=== PATIENT | male | born 1975 | race Caucasian/White ===

== ENCOUNTER 2019-02-27 21:38 | Emergency (ER) | payer OTHER ==
--- NOTE | 2019-02-27 21:59 | ED Physician Documentation ---
Hand Injury - HISTORIAN Historian: patient - HPI Stated Complaint: left hand pain Chief Complaint: Hand Injury Additional Information: Patient presents to ED with left hand pain since around 1600 today. Patient states he was securing a tractor to a trailer with a ratchet strap when the ratchet flipped back and hit his hand. He complains of thumb, index finger/metacarpal pain since the incident. He has been drinking alcohol heavily since the incident to help with the pain. Onset: today Where: work Severity: mild Duration: persistent since Context: blow Location of Injury: L hand Modifying Factors: pain on movement - ROS CONST: denies: fever GI/: denies: nausea, vomiting NEURO: denies: headache CVS/RESP: denies: chest pain, shortness of breath EYES/ENT: none MS/SKIN/LYMPH: none - PAST HX Past History: Rt handed Allergies/Adverse Reactions: Allergies Allergy/AdvReac Type Severity Reaction Status Date / Time No Known Allergies Allergy Unverified 02/27/19 21:59 Home Medications: Ambulatory Orders Medication Instructions Recorded Clonazepam 0.5 mg PO PRN PRN 02/27/19 - SOCIAL HX Smoking History: cigarettes, greater than 1 pack/day Alcohol Use: heavy Drug Use: none - FAMILY HX Family History: none - REVIEWED ASSESSMENTS Nursing Assessment Reviewed: Yes Vitals Reviewed: Yes ED Results Lab/Radiology - Radiology Radiology Impressions: Report Submission Date: Feb 27, 2019 10:15:16 PM CDT Patient Study Name: NE MENG Date: Feb 27, 2019 9:46:58 PM CDT Modality Type: DX Gender: M Description: HAND 3 VIEWS OR MORE : 75 Institution: [facility] Physician: WALE DENNY Three views of the left hand Clinical history: Injury. Findings: Examination of the left hand in palmar, lateral and oblique views fails to demonstrate evidence of fracture, dislocation or other bone or joint pathology. Electronically signed on Feb 27, 2019 10:15:16 PM CDT by: Crow Hanley - Orders Orders: ED Orders Category Date Time Status HAND 3 VIEWS OR MORE [RAD] Stat Exams 02/27/19 Ordered Hand Injury Physical Exam - Exam General Appearance: alert, other (Etoh on breath, slurred speech) Hand: ecchymosis (index finger and thumb nail ). No: deformity Wrist: normal inspection, non-tender, no evidence of injury Neuro: sensation nml, motor nml Vascular: no vascular compromise Tendons: tendon function nml Forearm/Elbow/Arm: uninjured above wrist Skin: warm/dry Head/ENT: nml inspection Neck/Back: nml inspection Resp/CVS: chest non-tender, breath sounds nml, heart sounds nml Abdomen: non-tender Discharge Clincal Impression: Contusion of hand, left Qualifiers: Encounter type: initial encounter Qualified Code(s): S60.222A - Contusion of left hand, initial encounter Referrals: Jori Vogt MD [Primary Care Provider] - 2 Days Additional Instructions: 1. Tylenol 650mg every 4 hours and/or Ibuprofen 600mg every 6 hours as needed for pain. These may be taken together for better pain control. 2. Apply ice to affected area as needed for comfort. 3. Keep hand elevated at rest to reduce swelling 4. Follow up with PCP within 1 week 5. Return to ER for new or worsening symptoms Condition: Stable Disposition: 01 HOME, SELF-CARE Decision to Admit: NO Date of Decison to Admit: 02/27/19 Decision Time: 22:22
[2019-02-27 22:35] VITALS: BP 138/104
--- NOTE | 2019-02-28 09:33 | Diagnostic Imaging Report ---
WALE DENNY [facility] [id number] [facility].[address] [id number] Report Submission Date: Feb 27, 2019 10:15:16 PM CDT Patient Study Name: NE MENG Date: Feb 27, 2019 9:46:58 PM CDT Modality Type: DX Gender: M Description: HAND 3 VIEWS OR MORE : 75 Institution: [facility] Physician: WALE DENNY Three views of the left hand Clinical history: Injury. Findings: Examination of the left hand in palmar, lateral and oblique views fails to demonstrate evidence of fracture, dislocation or other bone or joint pathology. Electronically signed on Feb 27, 2019 10:15:16 PM CDT by: Crow SHEPARD
== END 2019-02-27 22:27 | disposition home or self-care (01) ==
LOC: ED 21:38
DX: S60.222A Contusion of left hand, initial encounter (principal); W29.8XXA Contact with other powered hand tools and household machinery, initial encounter
CPT/HCPCS: 73130; 99281; 99284